=== PATIENT | female | born 2000 | race Hispanic/Latino ===

== ENCOUNTER 2021-01-08 19:47 | Inpatient (IN) | payer OTHER ==
[~2021-01-08] VITALS: Ht 160 cm; Wt 67.3 kg
[2021-01-08] MEDS ORDERED: MIRT1TAB16 PO (20:00)
[2021-01-08 20:30] LABS: HEMATOCRIT 39.3 % (36.0-47.0); HEMOGLOBIN 12.8 g/dl (12.0-15.5); MEAN CORPUSCULAR HEMOGLOBIN 29.8 pg (27.0-33.0); MEAN CORPUSCULAR HGB CONC 32.6 g/dl (32.0-36.5); MEAN CORPUSCULAR VOLUME 91.4 fl (80.0-96.0); PLATELET COUNT, AUTOMATED 180 10^3/uL (150-450); WHITE BLOOD COUNT 6.7 10^3/uL (4.0-10.0)
[2021-01-08 21:03] LABS: ACETAMINOPHEN LEVEL < 2.0 UG/ML (10.0-30.0); ALBUMIN 4.1 GM/DL (3.2-5.2); ALT/SGPT 21 U/L (12-78); BILIRUBIN,DIRECT 0.1 MG/DL (0.0-0.2); BILIRUBIN,TOTAL 0.3 MG/DL (0.2-1.0); BLOOD UREA NITROGEN 12 MG/DL (7-18); CALCIUM LEVEL 9.2 MG/DL (8.5-10.1); CARBON DIOXIDE LEVEL 26 MEQ/L (21-32); CHLORIDE LEVEL 108 MEQ/L (98-107); CREATININE FOR GFR 0.98 MG/DL (0.55-1.30); ETHYL ALCOHOL (ETHANOL) < 0.003 % (0.000-0.010); GLUCOSE, FASTING 87 MG/DL (70-100); POTASSIUM SERUM 4.2 MEQ/L (3.5-5.1); SALICYLATE LEVEL < 1.7 MG/DL (5.0-30.0); SODIUM LEVEL 142 MEQ/L (136-145); THYROID STIMULATING HORMONE 0.867 uIU/ML (0.463-3.98); TOTAL PROTEIN 7.7 GM/DL (6.4-8.2)
[2021-01-08 21:10] LABS: HCG, SERUM QUALITATIVE NEGATIVE (NEGATIVE)
[2021-01-08 21:11] LABS: RSV AMPLIFICATION NEGATIVE (NEGATIVE)
[2021-01-08 21:14] LABS: AMPHETAMINES LEVEL URINE NEGATIVE (NEGATIVE); BARBITURATES URINE NEGATIVE (NEGATIVE); BENZODIAZEPINES URINE NEGATIVE (NEGATIVE); CANNABINOIDS URINE NEGATIVE (NEGATIVE); COCAINE METABOLITE URINE NEGATIVE (NEGATIVE); METHADONE URINE NEGATIVE (NEGATIVE); OPIATES URINE NEGATIVE (NEGATIVE); PHENCYCLIDINE URINE NEGATIVE (NEGATIVE)
[2021-01-08] MEDS ORDERED: MOM 30ML SUSPENSION UDC PO PRN (21:45)
[2021-01-08] MEDS ORDERED: MAALOX 30 ML SUSP *UDC PO PRN (21:45)
[2021-01-08 22:13] VITALS: BP 114/73
[2021-01-08] MEDS ORDERED: MIRT-62 PO (22:27)
[2021-01-08] MEDS ORDERED: ERGO500029 PO (22:27)
--- NOTE | 2021-01-09 09:11 | MHHPEPDOC ---
General Date Of Admission: Jan 09, 2021 Legal Status: 9.39 Chief Complaint "[I had a bad day. I broke down and I trashed my apartment on was going to kill myself by driving my car fast.]. History of Present Illness HISTORY OF THE PRESENT ILLNESS: Patient is a 20 -year-old , female, who [has 1 prior psychiatric admission at age 16 and currently in outpatient treatment at behavioral health unit. 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 Patient stated that she had a tough day at the job and came home and started argument and the disappeared from the house and could not reach her. She got frustrated more irritated and depressed and trashed her apartment destroying the furniture and damaged apartment lambert and the door. The police was called and she told them that she was thinking about killing herself by driving her car on the road and crash. She was brought to emergency room and admitted on 939 status. The patient reports a long history of depression and irritability and history of self-mutilation and was briefly admitted in the [facility] in 2017 for a few days. She stated that she has been h aving episodes of depression with feeling sad hopeless worthless at times with irritability poor sleep and poor energy and concentration. She was recently prescribed mirtazapine with limited benefit. She denies any history of jennifer and denies any episodes of psychosis and currently denies any paranoia or hallucinations. She notes that she has problem with anger management and irritability and history of self-mutilation but denies any recent episodes of cutting herself. She does not feel acutely suicidal anymore but remains very depressed anxious and feeling unstable and feeling unsafe but is willing to accept help including medication changes.]. Psychiatric Review of Systems Depression (2 or more weeks): depressed mood, insomnia/hypersomnia, feelings of worthlesness, decreased energy, difficulty concentrating, suicidal thoughts, other (Irritability and anger management problem) Jennifer (4 or more days of): denies Psychosis: denies PTSD: denies Anxiety: situational anxiety, stressor related anxiety Past Psychiatric History Previous Psychiatric Diagnosis: . Depression Previous Psychiatric Admissions: [1 admission in [place] in 2017 for a few days after cutting herself]. Suicide Attempts: No history of suicide attempt. Psychiatric Follow-up: . Currently in outpatient treatment at [facility] Psychiatric medications: . Been taking mirtazapine for a month. Reports no significant relief and weight gain of about 5 pounds Past Medical History Medical Problems No medical history Head Injury: No Seizures: No Hospitalizations: No Surgeries: No Family Medical/Psychiatric HX Medical Problems Noncontributory Psychiatric Disorders: Yes (1 grandfather committed suicide and maternal aunt has a history of schizophrenia and younger brother has anger management issues) Addiction: No Suicide Attemps/Completions: Yes (1 grandfather committed suicide she does not know if maternal or paternal) Addiction History denies Social History Childhood: . Born in [place] came to [place] at age of 5 reports unremarkable childhood Abuse/Trauma:. No history of trauma Current Living Situation: . [place] Education: . High school Employment: . In active duty since 2019 Social Support: . Family and friend Legal: . No legal history no history of violence Marital: . in July 2020. Med in October 2019) Mental Status Examination General Appearance: appears stated age Build: average Demeanor: average (Initially guarded and somewhat mistrustful but warmed up later and fully cooperated) Eye Contact: average Activity: average Behavior: cooperative Speech: clear, slow, low in volume, non-spontaneous Mood: depressed, anxious Mood History of depression and irritability frequent episodes but no episode of jennifer Affect: constricted, appropriate, congruent, anxious Thought Process: logical/linear Thought Content (Delusions): none reported, other (Admits to suicidal thoughts by driving her car but no clear intent ) Thought Content (Other): none reported Thought Content (Aggressive): none reported Perception (Hallucinations): none reported Perception (Other): none reported Cognition (Impairment of): none reported Cognition(Intelligence Est.): average Oriented: Awake, Alert, Oriented times three Insight: fair Judgment: Fair Diagnoses Depressive disorder NOS A-FIB/CHADSVASC A-FIB History Current/History of A-Fib/PAF?: No Current PO Anticoag Therapy: No Age/Risk Factor Scoring CHADSVASC: CHADSVASC Response (Comments) Value Gender Risk Factor Female 1 Hx of CHF No 0 Hx of HTN No 0 Hx of Stroke/TIA/or VTE No 0 Hx of Diabetes No 0 Hx of Vascular Disease No 0 Total 1 Treatment Treatment ordered: NONE Assessment Moderate depression with significant irritability. Should consider underlying character disorder and impulse control disorder. Does not have any history of jennifer but has a history of self-mutilation. Been on mirtazapine with very little benefit. Was a started on Zoloft and we will titrate and try to stabilize. Continue with the supportive therapy and lethality evaluation Initial Treatment Plan 1. Patient was admitted on a 9.39 status. 2. Complete history was obtained. 3. With patients permission, family will be contacted and database will be expanded. 4. Patients medication regimen will be reviewed and changed accordingly. 5. Patient will be provided with protected environment. 6. Patient will be treated with individual, group, and milieu therapies. 7. Patient will receive supportive psych-education. 8. Discharge planning will commence immediately. 9. Outpatient follow-up treatment will be strongly recommended. 10. The initial treatment plan will focus initially on: * Depression. * Risk for suicide. ESTIMATED LENGTH OF STAY: 5-7 DAYS. TIME SPENT COUNSELING AND COORDINATING INITIAL CARE: 45 minutes. Tobacco Cessation Screen If Patient is a Smoker Non-smoker N/A-No Antipsychotics Vital Signs Vital Signs Date Time Temp Pulse Resp B/P (MAP) Pulse Ox O2 Delivery O2 Flow Rate FiO2 01/08/21 22:13 98.4 73 16 114/73 (87) 98 Room Air Laboratory Data 24H Labs Laboratory Tests 2 01/08/21 19:51: Nucleated Red Blood Cells % (auto) 0.0, Anion Gap 8, Calcium Level 9.2, Total Bilirubin 0.3, Direct Bilirubin 0.1, Aspartate Amino Transf (AST/SGOT) 17, Alanine Aminotransferase (ALT/SGPT) 21, Alkaline Phosphatase 53, Total Protein 7.7, Albumin 4.1, Albumin/Globulin Ratio 1.1L, Thyroid Stimulating Hormone (TSH) 0.867, Human Chorionic Gonadotropin, Qual NEGATIVE, Salicylates Level < 1.7L, Acetaminophen Level < 2.0L, Ethyl Alcohol Level < 0.003 01/08/21 20:03: Coronavirus (COVID-19)(PCR) NEGATIVE, Influenza Type A (RT-PCR) NEGATIVE, Influenza Type B (RT-PCR) NEGATIVE, Respiratory Syncytial Virus (PCR) NEGATIVE 01/08/21 20:38: Urine Opiates Screen NEGATIVE, Urine Methadone Screen NEGATIVE, Urine Barbiturates Screen NEGATIVE, Urine Phencyclidine Screen NEGATIVE, Urine Amphetamines Screen NEGATIVE, Urine Benzodiazepines Screen NEGATIVE, Urine Cocaine Metabolite Screen NEGATIVE, Urine Cannabinoids Screen NEGATIVE CBC/BMP Laboratory Tests 01/08/21 19:51 Medications Scheduled Ergocalciferol (Vitamin D2) (Vitamin D2) 50,000 Units Cap, 50,000 UNITS PO QWEEK, (Reported) MONDAYS Mirtazapine (Remeron) 15 Mg Tablet, Unknown Dose PO QHS, (Reported) Allergies Coded Allergies: No Known Allergies (Verified Allergy, Unknown, 01/08/21) HILTON KENNEDY M.D. Jan 09, 2021 09:11
[2021-01-09] MEDS: ACETAMINOPHEN TAB 650MG DOSE (2X325MG) PO PRN ×3 (09:33→21:39)
[2021-01-09] MEDS: SERTRALINE HCL 50 MG TAB PO SCH (09:33)
--- NOTE | 2021-01-09 11:20 | HPEPDOC ---
General Date of Admission Jan 08, 2021 at 21:41 Date of Service: Jan 09, 2021 Attending Physician: MILADY GREEN MD Chief Complaint The patient is a 20-year-old female admitted with a reason for visit of Unspecified Depressive Disorder. Source: Patient Exam Limitations: No limitations Timing/Duration: Other (Not applicable) History of Present Illness This is 20 years old female admitted to psych unit with suicidal thoughts and threats. Patient has a history of depression and anger management issues and [place] herself and was brought to [facility] for admission we were called in for medical management. Patient denies any medical complaints. Home Medications Scheduled Ergocalciferol (Vitamin D2) (Vitamin D2) 50,000 Units Cap, 50,000 UNITS PO QWEEK, (Reported) MONDAYS Mirtazapine (Remeron) 15 Mg Tablet, 15 MG PO QHS for MOOD, (Reported) CAN TAKE 0.5 TO 1 TABLET QHS Allergies Coded Allergies: No Known Allergies (Verified Allergy, Unknown, 01/08/21) Past Medical History Medical History Depression, anger management issues Surgical History None Social History * Smoker: Denies Alcohol: Denies Drugs: denies A-FIB/CHADSVASC A-FIB History Current/History of A-Fib/PAF?: No Age/Risk Factor Scoring CHADSVASC: CHADSVASC Response (Comments) Value Gender Risk Factor Female 1 Hx of CHF No 0 Hx of HTN No 0 Hx of Stroke/TIA/or VTE No 0 Hx of Diabetes No 0 Hx of Vascular Disease No 0 Total 1 Review of Systems Constitutional: Denies: Chills, Fever, Malaise, Night Sweats, Weakness, Fatigue, Weight Loss, Lethargy, Other Eyes: Denies: Pain, Vision change, Conjunctivae inflammation, Eyelid inflammation, Redness, Other ENT: Denies: Head Aches, Ear Pain, Dysphagia, Sinus Congestion, Post Nasal Drip, Sore Throat, Epistaxis, Other Symptoms Skin: Denies: Rash, Lesions, Jaundice, Bruising, Itching, Dry, Breakdown, Nail Changes, Other Pulmonary: Denies: Dyspnea, Cough, Pleuritic Chest Pain, Other Symptoms Gastrointestinal: Denies: Nausea, Vomiting, Abdominal Pain, Diarrhea, Constipation, Melena, Hematochezia, Other Symptoms Genitourinary: Denies: Dysuria, Frequency, Incontinence, Hematuria, Retention, Other Symptoms Musculoskeletal: Denies: Neck Pain, Back Pain, Shoulder Pain, Arm Pain, Hand Pain, Leg Pain, Foot Pain, Joint Pain, Muscle Pain, Spasms, Other Symptoms Neurological: Denies: Weakness, Numbness, Incoordination, Change in speech, Con fusion, Seizures, Other Symptoms Psych: Reports: Depression Physical Examination General Exam: Positive: Alert Chest Exam: Positive: Clear to auscultation, Normal air movement Heart Exam: Positive: Rate Normal, Normal S1 Abdomen Exam: Positive: Normal bowel sounds, Soft Extremity Exam: Positive: Other (No clubbing sinus edema) Skin Exam: Positive: Nl turgor and temperature Neuro Exam: Positive: Other (No focal motor or sensory deficit) Psych Exam: Positive: Mood NL Vital Signs Vital Signs Date Time Temp Pulse Resp B/P (MAP) Pulse Ox O2 Delivery O2 Flow Rate FiO2 01/08/21 22:13 98.4 73 16 114/73 (87) 98 Room Air Laboratory Data Labs 24H Laboratory Tests 2 01/08/21 19:51: Nucleated Red Blood Cells % (auto) 0.0, Anion Gap 8, Calcium Level 9.2, Total Bilirubin 0.3, Direct Bilirubin 0.1, Aspartate Amino Transf (AST/SGOT) 17, Alanine Aminotransferase (ALT/SGPT) 21, Alkaline Phosphatase 53, Total Protein 7.7, Albumin 4.1, Albumin/Globulin Ratio 1.1L, Thyroid Stimulating Hormone (TSH) 0.867, Human Chorionic Gonadotropin, Qual NEGATIVE, Salicylates Level < 1.7L, Acetaminophen Level < 2.0L, Ethyl Alcohol Level < 0.003 01/08/21 20:03: Coronavirus (COVID-19)(PCR) NEGATIVE, Influenza Type A (RT-PCR) NEGATIVE, Influenza Type B (RT-PCR) NEGATIVE, Respiratory Syncytial Virus (PCR) NEGATIVE 01/08/21 20:38: Urine Opiates Screen NEGATIVE, Urine Methadone Screen NEGATIVE, Urine Barbiturates Screen NEGATIVE, Urine Phencyclidine Screen NEGATIVE, Urine Amphetamines Screen NEGATIVE, Urine Benzodiazepines Screen NEGATIVE, Urine Cocaine Metabolite Screen NEGATIVE, Urine Cannabinoids Screen NEGATIVE CBC/BMP Laboratory Tests 01/08/21 19:51 Problems (1) Depression Status: Acute (2) Suicidal ideation Status: Acute Plan / VTE VTE Prophylaxis Ordered?: Yes Plan Plan This is 20 years old female admitted to psych unit with suicidal thoughts and threats. Patient has a history of depression and anger management issues and [place] herself and was brought to [facility] for admission we were called in for medical management. Patient denies any medical complaints. Patient admitted to inpatient mental health unit for further psychiatric care Patient will receive individual group and milieu therapies as well as supportive psych education Patient was started on Zoloft and will be titrated until patient is asymptomatic Patient has no medical complaints and no medical history we will sign off please call as needed MILADY GREEN MD Jan 09, 2021 11:20
[2021-01-09] MEDS: traZODone 50 MG TAB PO PRN (21:39)
[2021-01-10 07:02] VITALS: BP 108/83
[2021-01-10] MEDS: SERTRALINE HCL 50 MG TAB PO SCH (09:17)
[2021-01-10] MEDS: ACETAMINOPHEN TAB 650MG DOSE (2X325MG) PO PRN ×3 (09:19→21:35)
[2021-01-10 16:13] VITALS: BP 126/60
[2021-01-10] MEDS: traZODone 50 MG TAB PO PRN (21:35)
[2021-01-11 05:49] VITALS: BP 126/57
[2021-01-11] MEDS: SERTRALINE HCL 50 MG TAB PO SCH (08:21)
[2021-01-11] MEDS: ACETAMINOPHEN TAB 650MG DOSE (2X325MG) PO PRN (08:22)
[2021-01-11] MEDS: hydrOXYzine 25 MG TAB PO PRN (20:00)
[2021-01-11] MEDS: traZODone 50 MG TAB PO PRN (20:00)
--- NOTE | 2021-01-11 22:31 | MHIPN ---
[facility] PROGRESS NOTE DATE: 01/10/2021 The patient is seen via telepsychiatry due to the current Coronavirus crisis. Today, she tells me "I'm good." She says she gets tired however it took her a while to fall asleep because she says that her roommate snores. She has no other complaints. MENTAL STATUS EXAMINATION: She is alert and oriented times three. Eye contact is good. She is verbally spontaneous. There is no formal thought disorder noted. She says that her mood is "good." Affect constricted but appropriate. She is not psychotic, suicidal, or homicidal. Concentration is fair, memory intact. Insight and judgment is fair. DIAGNOSES: Unspecified depressive disorder. Borderline personality disorder. Rule out impulse control disorder. TREATMENT PLAN: We will continue to monitor the patient for continued elevation and stabilization of her mood and resolution of any suicidal or homicidal thoughts.
[2021-01-12 06:12] VITALS: BP 116/87
[2021-01-12] MEDS: SERTRALINE HCL 50 MG TAB PO SCH (08:45)
[2021-01-12] MEDS: CEPACOL LOZENGE PO PRN ×5 (09:05→20:37)
--- NOTE | 2021-01-12 10:11 | MHIPNPDOC ---
[facility] Progress Note Progress Note DATE OF SERVICE: 01/12/21 The patient has been cooperating with the medications and maintaining good control. She reported that her anger and anxiety is not as intense and does not feel any suicidal thoughts and does not have any aggressive thoughts to her . She feels that she needs some time away from her so they can repair the damage and rebuild their relationship and has already asked [employer] if [place]. She denies any side effect from Zoloft and her sleep is much better but still gets occasional anxiety and has been using Atarax as needed with good relief. HISTORY:. VITAL SIGNS: See below. NEW TEST RESULTS:. CURRENT MEDICATIONS: See below. MENTAL STATUS EXAMINATION: Patient is a 20-year old female, who is in good spirit uncontrolled. Speech: Is rational and coherent. Language skills are good. Thought processes including: Organized. Thought content: Denies any suicidal thoughts. Abstract reasoning, and computation: Good. Description of associations: Coherent. Description of abnormal or psychotic thoughts: Denies any psychotic symptoms. Judgment: Fair. Insight: Fair. Orientation: Well oriented. Recent and remote memory: Unimpaired. Attention span and concentration: Fair. Language:. Fund of knowledge:. Mood: Feeling better and more animated. Affect: Appropriate. DIAGNOSES: 1.. Depressive disorder NOS 2.. 3.. ASSESSMENT: Showing some improvement MANAGEMENT PLAN: Increase Zoloft to 75 mg continue with the supportive therapy possible discharge tomorrow. TIME SPENT: 20 minutes. Vital Signs Vital Signs Date Time Temp Pulse Resp B/P (MAP) Pulse Ox O2 Delivery O2 Flow Rate FiO2 01/12/21 06:12 97.5 71 16 116/87 (97) 97 Room Air Current Medications Current Medications Medications (Trade) Dose Ordered Sig/Santy Route PRN Reason Start Time Stop Time Status Last Admin Dose Admin Acetaminophen (Tylenol Tab) 650 mg Q6HP PRN PO HEADACHE or MILD DISCOMFORT 01/08/21 21:45 01/11/21 08:22 Al Hydrox/Mg Hydrox/Simethicone (Mylanta) 30 ml Q4HP PRN PO HEARTBURN/INDIGESTION 01/08/21 21:45 Cetylpyridinium Chloride (Cepacol) 1 harry Q2HP PRN PO SORE THROAT 01/12/21 08:30 01/12/21 09:05 Home Med (Med Rec Complete!) ASDIRECTED XX 01/08/21 22:30 01/08/21 22:29 DC Hydroxyzine HCl (Atarax) 25 mg Q6HP PRN PO AGITATION 01/08/21 21:45 01/11/21 20:00 Magnesium Hydroxide (Milk Of Magnesia) 30 ml DAILYPRN PRN PO CONSTIPATION 01/08/21 21:45 Sertraline HCl (Zoloft) 50 mg DAILY PO 01/09/21 09:00 01/12/21 08:45 Trazodone HCl (Desyrel) 50 mg QHSP PRN PO INSOMNIA 01/08/21 21:45 01/11/21 20:00 Allergies Coded Allergies: No Known Allergies (Verified Allergy, Unknown, 01/08/21) HILTON KENNEDY M.D. Jan 12, 2021 10:11
--- NOTE | 2021-01-12 12:21 | MHIPN ---
[facility] PSYCHIATRIC PROGRESS NOTE DATE OF SERVICE: 01/11/2021 The patient is seen via telepsychiatry due to the current Coronavirus crisis. HISTORY OF PRESENT ILLNESS: The patient today states that "I am doing good." She says she slept good last night. She fell asleep before her roommate who snores and so she did not have any problems with sleep. She has no complaints. MENTAL STATUS EXAM: This patient is alert and oriented times 3, pleasant and cooperative, verbally spontaneous. Eye contact is good. Mood is good. Affect is full range and appropriate. Patient is not psychotic, suicidal or homicidal. Concentration and memory is good. Insight and judgment good. DIAGNOSES: 1. Unspecified depressive disorder. 2. Borderline personality disorder. 3. Rule out impulse control disorder. TREATMENT PLAN: At this point we will continue to monitor the patient for continued elevation and stabilization of her mood and resolution of any suicidal ideations. LUISA
[2021-01-12] MEDS: hydrOXYzine 25 MG TAB PO PRN (13:34)
[2021-01-12 19:02] VITALS: BP 118/64
[2021-01-12] MEDS: traZODone 50 MG TAB PO PRN (20:37)
[2021-01-13 06:33] VITALS: BP 140/72
[2021-01-13] MEDS ORDERED: SERTRALINE HCL 25 MG TABLET PO SCH (09:00)
[2021-01-13] MEDS: CEPACOL LOZENGE PO PRN (09:01)
[2021-01-13] MEDS ORDERED: SERT25TA21 PO (09:21)
[2021-01-13] MEDS ORDERED: TRAZ-252 PO (09:21)
[2021-01-13] MEDS ORDERED: HYDR-3363 PO (09:21)
--- NOTE | 2021-01-13 11:59 | MHDSPDOC ---
[facility] Discharge Summary Discharge Summary DATE OF ADMISSION: Jan 08, 2021 at 21:41 DATE OF DISCHARGE: January 12, 2021 DISCHARGE DIAGNOSES: 1.. Depressive disorder NOS 2.. REASON FOR ADMISSION: 20-year-old female with a prior history of depression admitted after she became very angry agitated and pressured to her apartment and expressed to suicidal thoughts. Patient has been in outpatient treatment at [facility] but has been under stress due to her marital issues with her of 1 year and the job related to stress. She admits to feeling depressed and [id number] but denies any psychotic symptoms and no history of rosibel and no clear suicidal intent. CONSULTANTS INVOLVED: TREATMENT AND PROGRESS ON THE UNIT : She was a simple daily supportive therapy was started back on her Zoloft to 50 mg and given Atarax 25 mg as needed and trazodone 50 mg at bedtime. She has fully cooperated with the medicine maintained good control and showed marked improvement.. HOSPITAL COURSE: She responded well to the supportive therapy and education and tolerated her medications. Her sleep has improved and she is not as angry or irritable anymore and becoming much more pleasant and spontaneous and animated. She is denying any suicidal thoughts plan or intent but remains moderately anxious about returning to her work and her marriage. She is going [place] housing [place] but will be visiting her daily to work out the difference and continue to receive outpatient counseling. DISCHARGE ASSESSMENT: Much improved stable and not suicidal MENTAL STATUS EXAMINATION ON DISCHARGE: Patient is a 20-year old female, who is in no acute distress. Speech is spontaneous and coherent. Language skills are good. Thought processes including: Relevant and coherent. Thought content: Denies any suicidal thoughts. Abstract reasoning, and computation: Fair. Description of associations: Organized. Description of abnormal or psychotic thoughts: No psychotic symptoms. Judgment: Fair. Insight: Fair. Orientation to well oriented. Recent and remote memory: Unimpaired fair. Attention span and concentration: Fair. Language:. Fund of knowledge:. Mood: Moderately anxious about returning to job and her marriage. Affect: Appropriate. MEDICATIONS ON DISCHARGE: -For. Zoloft 75 mg daily for 7 days with 3 refills -For. Trazodone 50 mg at bedtime as needed for 7 days -For. Atarax 25 mg every 6 hours as needed for 7 days PLAN/FOLLOWUP ARRANGEMENTS: To follow-up with [facility]. The amount of time spent in the coordination of care for this patient was approximately 35 minutes. ETOH/Disorder Med Rx ETOH/DRUG DISORDER RX: N/A Vital Signs/I&Os Vital Signs Date Time Temp Pulse Resp B/P (MAP) Pulse Ox O2 Delivery O2 Flow Rate FiO2 01/13/21 06:33 97.5 95 16 140/72 (94) 98 Room Air Medications Scheduled Ergocalciferol (Vitamin D2) (Vitamin D2) 50,000 Units Cap, 50,000 UNITS PO QWEEK, (Reported) MONDAYS Sertraline HCl (Sertraline HCl) 25 Mg Tablet, 75 MG PO DAILY for depression for 7 Days, #21 Scheduled PRN Hydroxyzine HCl (Hydroxyzine HCl) 25 Mg Tablet, 25 MG PO Q6HP PRN for AGITATION for 7 Days, #28 Trazodone HCl (Trazodone HCl) 50 Mg Tablet, 50 MG PO QHSP PRN for INSOMNIA for 7 Days, #7 Allergies Coded Allergies: No Known Allergies (Verified Allergy, Unknown, 01/08/21) HILTON KENNEDY M.D. Jan 13, 2021 11:59
== END 2021-01-13 11:37 | disposition home or self-care (01) | DRG 881 ==
LOC: M ED 19:47 → M ED INP 21:41 → M PSY 22:51
PROVIDERS: ADMIT Psychiatry & Neurology Psychiatry; ATTEND Psychiatry & Neurology Psychiatry
DX: F32.9 Major depressive disorder, single episode, unspecified (principal); R45.851 Suicidal ideations; R45.4 Irritability and anger; F60.3 Borderline personality disorder; Z81.8 Family history of other mental and behavioral disorders; Z91.5 Personal history of self-harm; Z20.822 Contact with and (suspected) exposure to COVID-19; Z79.899 Other long term (current) drug therapy; Z63.0 Problems in relationship with spouse or partner; Z56.89 Other problems related to employment

== ENCOUNTER 2021-03-17 11:44 | Emergency (ER) | payer OTHER ==
[~2021-03-17] VITALS: Ht 160 cm; Wt 73.7 kg
[~2021-03-17 11:44] MED LIST: ERGO500029 PO; HYDR-3363 PO; MIRT-62 PO; MIRT1TAB16 PO; SERT25TA21 PO; TRAZ-252 PO
[2021-03-17 12:49] LABS: BASO % 0.4 % (0.0-1.0); EOS # 0.1 10^3/uL (0.0-0.5); EOS % 1.5 % (0.0-3.0); HEMATOCRIT 41.2 % (36.0-47.0); LYMPH # 1.1 10^3/uL (1.5-5.0); LYMPH % 23.2 % (24.0-44.0); MEAN CORPUSCULAR HEMOGLOBIN 28.7 pg (27.0-33.0); MEAN CORPUSCULAR HGB CONC 31.6 g/dl (32.0-36.5); MEAN CORPUSCULAR VOLUME 90.9 fl (80.0-96.0); MONO # 0.3 10^3/uL (0.0-0.8); MONO % 6.7 % (2.0-8.0); NEUTROPHILS # 3.2 10^3/uL (1.5-8.5); PLATELET COUNT, AUTOMATED 180 10^3/uL (150-450); RED BLOOD COUNT 4.53 10^6/uL (4.00-5.40); WHITE BLOOD COUNT 4.7 10^3/uL (4.0-10.0)
[2021-03-17 13:11] LABS: BLOOD UREA NITROGEN 13 MG/DL (7-18); CALCIUM LEVEL 9.5 MG/DL (8.5-10.1); CARBON DIOXIDE LEVEL 27 MEQ/L (21-32); CHLORIDE LEVEL 107 MEQ/L (98-107); CREATININE FOR GFR 0.88 MG/DL (0.55-1.30); GLUCOSE, FASTING 99 MG/DL (70-100); HCG, SERUM QUANTITATIVE 5 MIU/ML; POTASSIUM SERUM 4.3 MEQ/L (3.5-5.1); SODIUM LEVEL 140 MEQ/L (136-145)
--- NOTE | 2021-03-17 14:51 | REP ---
INDICATION: vaginal bleeding. COMPARISON: None. TECHNIQUE: Transabdominal and transvaginal scanning. FINDINGS: A normal-sized empty uterus is seen with dimensions of 6.6 x 2.9 x 4.1 cm. Endometrial echo is 0.3 cm thick and centrally placed. No intrauterine gestation is seen. There is no evidence of free fluid. No and cell abnormality is appreciated. Right ovarian dimensions are 2.4 x 1.7 x 1.5 cm. It is Doppler flow is normal, resistive index 0.57. The left ovary measures 1.4 x 1.3 x 1.3 cm. There is Doppler flow to the left ovary, resistive index 0.61. IMPRESSION: No morphologic abnormality. Normal-sized empty uterus. No intrauterine gestation or adnexal cyst or mass. No free fluid. Nonspecific findings in early . Clinical and possibly sonographic follow-up is advised. <Electronically signed by Rolan Brannon > 03/17/21 0021
[2021-03-17 15:45] VITALS: BP 128/74
== END 2021-03-17 16:07 | disposition home or self-care (01) ==
LOC: M ED 11:44
DX: Z32.01 Encounter for pregnancy test, result positive (principal); N93.9 Abnormal uterine and vaginal bleeding, unspecified; J45.909 Unspecified asthma, uncomplicated

== ENCOUNTER → 2021-03-19 | Outpatient (CLI) | payer OTHER | LOC: M LAB 14:25 | PROVIDERS: ATTEND Emergency Medicine | DX: N93.9 Abnormal uterine and vaginal bleeding, unspecified (principal) ==